=== PATIENT | male | born 1970 | race African-American/Black ===

== ENCOUNTER 2017-02-14 20:34 | Emergency (ER) | payer OTHER ==
[~2017-02-14] VITALS: Ht 167.6 cm; Wt 99.8 kg
== END 2017-02-14 21:45 | disposition home or self-care (01) ==
LOC: CED 20:34 → CFTX 20:34
DX: S46.212A Strain of muscle, fascia and tendon of other parts of biceps, left arm, initial encounter (principal); I10 Essential (primary) hypertension; X58.XXXA Exposure to other specified factors, initial encounter; Y92.69 Other specified industrial and construction area as the place of occurrence of the external cause; Y99.0 Civilian activity done for income or pay
CPT/HCPCS: 99283